=== PATIENT | female | born 1960 | race Caucasian/White ===

== ENCOUNTER 2023-12-01 12:06 | Observation (INO) ==
[2023-12-01 12:45] LABS: Hemoglobin 10.1 g/dL (11.5-14.3); Mean Corpuscular Hemoglobin 32.1 pg (27-33); Mean Corpuscular Hgb Conc 33.7 g/dL (31-36); Mean Platelet Volume 7.9 fL (7.5-11.2); Platelet Count 337 10^3/uL (150-450); Red Blood Count 3.16 10^6/uL (3.63-4.92); Red Cell Distribution Width 13.1 % (12-17); White Blood Count 12.4 10^3/uL (3.8-11.8)
[2023-12-01] MEDS: NS 0.9% 1000 ml BAG 1,000 ML IV ONE (14:25)
[2023-12-01 14:39] LABS: Hematocrit 30.2 % (35-45); Hemoglobin 10.1 g/dL (11.5-14.3); Mean Corpuscular Hemoglobin 32.1 pg (27-33); Mean Corpuscular Hgb Conc 33.5 g/dL (31-36); Mean Corpuscular Volume 95.8 fL (80-97); Mean Platelet Volume 7.9 fL (7.5-11.2); Platelet Count 355 10^3/uL (150-450); Red Blood Count 3.15 10^6/uL (3.63-4.92); Red Cell Distribution Width 13.2 % (12-17); White Blood Count 10.7 10^3/uL (3.8-11.8)
[2023-12-01 14:44] LABS: Activated Partial Thrombo Time 28.9 seconds (26.0-38.0); INR 1.14 (0.85-1.14)
[2023-12-01 15:08] LABS: Albumin 3.9 g/dL (3.2-5.2); C Reactive Protein 7.77 mg/L (<8.01); Calcium 8.9 mg/dL (8.6-10.3); Creatinine, Serum 0.66 mg/dL (0.51-0.95); Direct Bilirubin 0.1 mg/dL (0.03-0.18); Indirect Bilirubin 0.5 mg/dL (0.3-1.0); Potassium 4.9 mmol/L (3.5-5.0); Total Bilirubin 0.6 mg/dL (0.2-1.0); Total Protein 5.9 g/dL (6.4-8.9); eGFR CKD-EPI 98.5 (>60)
[2023-12-01 15:21] LABS: Ferritin 213.3 ng/mL (11-307)
[2023-12-01] MEDS ORDERED: Lidocaine 2% PF 5 ML VIAL ONE (15:25)
[2023-12-01] MEDS ORDERED: Propofol 10 MG/ML 20 ML BTL ONE (15:25)
[2023-12-01] MEDS ORDERED: fentaNYL 100 mcg/2 ml 50 MCG/ML VIAL ONE (15:25)
[2023-12-01] MEDS ORDERED: Ondansetron 4 mg VIAL 2 MG/ML 2 ml VIAL IV PRN (15:46)
[2023-12-01] MEDS: Pantoprazole 80 mg in NS BAG 80 MG/250 ML BAG IV SCH (18:44)
[2023-12-02 06:53] LABS: ABS Basophils 0.1 10^3/uL (0.0-0.1); ABS Eosinophils 0.1 10^3/uL (0.0-0.5); ABS Lymphocytes 1.2 10^3/uL (1.0-4.8); ABS Monocytes 0.5 10^3/uL (0.0-0.9); ABS Neutrophils 2.7 10^3/uL (1.5-7.6); Eosinophil % 2.9 %; Hematocrit 26.5 % (35-45); Hemoglobin 9.4 g/dL (11.5-14.3); Lymphocyte % 25.8 %; Mean Corpuscular Hemoglobin 33.9 pg (27-33); Mean Corpuscular Hgb Conc 35.5 g/dL (31-36); Mean Corpuscular Volume 95.3 fL (80-97); Platelet Count 312 10^3/uL (150-450); Red Blood Count 2.78 10^6/uL (3.63-4.92); Red Cell Distribution Width 13.1 % (12-17); White Blood Count 4.6 10^3/uL (3.8-11.8)
[2023-12-02 07:12] LABS: Calcium 8.7 mg/dL (8.6-10.3); Creatinine, Serum 0.7 mg/dL (0.51-0.95); Magnesium 2.1 mg/dL (1.9-2.7); Phosphorus 3.9 mg/dL (2.5-5.0); Potassium 4.5 mmol/L (3.5-5.0); eGFR CKD-EPI 97.1 (>60)
[2023-12-02 07:32] LABS: Ferritin 237.9 ng/mL (11-307)
[2023-12-02] MEDS: Pantoprazole VIAL 40 MG VIAL IV SCH (20:10)
[2023-12-03 05:27] LABS: Hematocrit 24.8 % (35-45); Hemoglobin 8.6 g/dL (11.5-14.3); Mean Corpuscular Hemoglobin 32.8 pg (27-33); Mean Corpuscular Hgb Conc 34.6 g/dL (31-36); Mean Corpuscular Volume 94.9 fL (80-97); Mean Platelet Volume 7.7 fL (7.5-11.2); Platelet Count 304 10^3/uL (150-450); Red Blood Count 2.62 10^6/uL (3.63-4.92); Red Cell Distribution Width 12.9 % (12-17); White Blood Count 4.3 10^3/uL (3.8-11.8)
[2023-12-03 09:11] VITALS: BP 124/78
[2023-12-03 11:40] LABS: Hematocrit 25.1 % (35-45); Hemoglobin 8.9 g/dL (11.5-14.3)
== END 2023-12-03 12:40 | disposition home or self-care (01) ==
LOC: EDHOLD 12:06 → ED 12:06 → MED 15:30 → AA 16:07 → MED 17:16
PROVIDERS: ADMIT Internal Medicine; ATTEND Internal Medicine
PROC: O.GIEGD (2023-12-01 14:20)